=== PATIENT | male | born 1965 | race Caucasian/White ===

== ENCOUNTER 2020-01-15 19:56 | Emergency (ER) | payer MEDICAID, SELFPAY ==
[~2020-01-15] VITALS: Ht 165.1 cm; Wt 59.0 kg
[2020-01-15 22:00] VITALS: BP 102/65
== END 2020-01-15 22:00 | disposition home or self-care (01) ==
LOC: ED 19:56
DX: J18.9 Pneumonia, unspecified organism (principal); J11.1 Influenza due to unidentified influenza virus with other respiratory manifestations; Z20.828 Contact with and (suspected) exposure to other viral communicable diseases
CPT/HCPCS: 87804; Q0092